=== PATIENT | female | born 1970 | race Caucasian/White ===

== ENCOUNTER 2023-05-15 19:25 | Emergency (ER) | payer OTHER, SELFPAY ==
[2023-05-15 19:28] VITALS: BP 153/87; PULSE 94; RESP 20; TEMP 36.3; O2SAT 98; BMI 36.3
--- NOTE | 2023-05-15 19:52 | US_ITS ---
INDICATION: RUQ PAIN EXAMINATION: Ultrasound US Abdomen RUQ (limited) TECHNIQUE: Crespo scale and color doppler imaging was performed of the right upper quadrant. COMPARISON: None. FINDINGS: LIVER: Hyperechoic parenchyma. No focal hepatic lesion. There is no free fluid. GALLBLADDER AND BILIARY TREE: No shadowing gallstone, pericholecystic fluid or gallbladder wall thickening is demonstrated. The proximal common bile duct measures 4 mm in caliber, which is within normal limits for the patient''s age. Sonographic Rojo''s sign: Negative. PANCREAS: No focal abnormality is demonstrated in the pancreas. No pancreatic ductal dilatation. US/Gallbladder IMPRESSION: Hyperechoic liver compatible with hepatocellular disease such as steatosis. No acute sonographic abnormality is demonstrated in the right upper quadrant. Electronically Signed: Ayden Ambrosio MD at 20:35 EDT ,
[2023-05-15] MEDS: Morphine 4 MG/ML Syringe IV (20:00)
[2023-05-15] MEDS: Ondansetron 4 MG/2 ML Vial IV (20:00)
[2023-05-15 20:07] LABS: Absolute Lymphocyte Count 1.73 X10^3/uL (0.83-4.51); Absolute Neutrophil Count 9.1 X10^3/uL (2.0-7.7); Basophil# 0.03 X10^3/uL; Basophil% 0.3 % (0-1); Eosinophil# 0.05 X10^3/uL; Eosinophils% 0.4 % (0-5); Hematocrit 42.2 % (37-47); Hemoglobin 13.9 g/dL (12.0-15.0); Lymphocyte # 1.73 X10^3/ul (0.83-4.51); Lymphocyte % 14.9 % (19-41); Mean Corp Hgb Conc 32.9 g/dL (32-36); Mean Corpuscular Hgb 28.8 pg (27.0-32.0); Mean Corpuscular Volume 87.6 fL (81-99); Mean Platelet Vol. 9.6 fl (6.2-12.0); Monocyte# 0.66 X10^3/uL; Monocyte% 5.7 % (0-10); NRBC Flagged by Analyzer 0 % (0-5); Neutrophil # 9.13 X10^3/uL (2.7-7.7); Neutrophil % 78.4 % (47-70); Platelet Count 307 K/mm3 (150-450); RBC Distribution Width SD 41.7 fl (35.1-43.9); Red Blood Count 4.82 M/mm3 (4.2-5.4); White Blood Count 11.6 K/mm3 (4.4-11.0)
[2023-05-15 20:22] LABS: AST(SGOT) 16 U/L (15-37); Alanine Aminotransfer ALT/SGPT 34 U/L (13-56); Albumin, Serum 3.9 g/dL (3.2-5.0); Alkaline Phosphatase 84 U/L (45-117); Bilirubin, Direct 0.11 mg/dL (0.00-0.30); Globulin 3.8 g/dL (2.2-4.2); Lipase 21 U/L (13-75); Protein, Total 7.7 g/dL (6.4-8.2)
--- NOTE | 2023-05-15 20:27 | ED.VIS.GI ---
HPI HPI - GI History of Present Illness Chief Complaint: Abd Pain Detail of Chief Complaint: Right upper quadrant abdominal pain with nausea and vomiting Informant: patient and spouse/S.O. Abdominal Pain/Flank Pain Onset: Today Context: Sudden Onset Timing: Continuous and Waxes and wanes Quality: Cramping Location: RUQ Current Severity: Moderate Maximum Severity: Severe Worsened by: Food (After having chocolate milk and chocolate chip cookies for breakfast and coleslaw for lunch) Nausea/Vomiting/Emesis GI Symptom: Positive for Nausea and Vomiting Onset: Today Quality: Negative for Nonbilious, Blood streaks, Coffee ground or Hematemesis Diarrhea/Melena/Hematochezia GI Symptom: Negative for Diarrhea, Melena or Hematochezia Associated Symptoms Associated Symptoms: Negative for Dysuria, Frequency, Hematuria or Urgency Narrative Narrative: Patient is a 52-year-old woman who endorses intolerance to greasy and fried foods. Pain started this morning after having chocolate milk and chocolate chip cookies for breakfast. Onset was 2 to 3 hours after she ate. Pain got worse after she had coleslaw for lunch at 1130. She has had nausea and vomiting. She denies black or maroon-colored stool. She denies coffee-ground emesis. She denies radiation of the pain to her back. Family history cholelithiasis. She denies headache, visual, ocular auditory symptoms. Denies cardiac respiratory symptoms. She denies leg pain, swelling discoloration. She denies sick symptoms. There is no history of trauma. Prior similar symptoms: No Recent Illness/Hospitalization: No PFSH PFSH Medical History Cyst of abdomen Torn meniscus Home Medications montelukast 10 mg tablet 10 mg PO DAILY 05/15/23 [History Last Taken Unknown] venlafaxine 75 mg capsule,extended release 24 hr 75 mg PO BID 05/15/23 [History Last Taken Unknown] Allergy/AdvReac Type Severity Reaction Status Date / Time Penicillins Allergy PT UNSURE Verified 05/15/23 19:28 OF REACTION Surgical History Previous section Social History (Updated 05/15/23 @ 20:[address] Naseem Watters MD) household members: spouse Smoking Status: Never smoker substance use type: does not use ROS ROS ED Constitutional Constitutional ED: Denies chills, fever(s), subjective, sweats or weight loss ENT ENT ED: Denies ear pain, rhinorrhea or sore throat Cardiovascular Cardiovascular: Denies chest pain, orthopnea, palpitations, paroxysmal nocturnal dyspnea or racing heartbeat Respiratory/Chest Respiratory/Chest: Denies cough, dyspnea, dyspnea on exertion, orthopnea or paroxysmal nocturnal dyspnea Gastrointestinal Gastrointestinal: Reports abdominal pain, nausea and vomiting; Denies constipation, diarrhea or melena Genitourinary Genitourinary ED: Denies dysuria, hematuria or urinary frequency Musculoskeletal Musculoskeletal: Denies arthralgias, back pain, myalgias or neck pain Integumentary Denies Abrasions or rash Neurologic Neurologic: Denies headache(s), paresthesias or weakness Psychiatric Psychiatric: Denies anxiety Hematologic/Lymphatic Hematologic/Lymphatic: Denies easy bleeding or easy bruising EXAM Physical Exam Const Vital Signs: 05/15/23 19:28 Temperature 97.3 F L Temperature Source Temporal Pulse Rate 94 Respiratory Rate 20 H Blood Pressure 153/87 H Blood Pressure Mean 109 Pulse Ox 98 Oxygen Delivery Method Room Air Positive well nourished, well developed and obese General Appearance ED: well developed; Negative for NAD or pallor Nutritional Appearance: obese HEENT Reports TM's clear and dry mucous membranes normocephalic and atraumatic Tympanic Membrane ED: Yes TM's clear Mouth ED: Yes dry mucous membranes Mouth: dry mucous membranes Eyes PERRL and EOMs intact bilaterally General Eye ED: Negative for pale conjunctiva or scleral icterus Neck no lymphadenopathy, supple and no JVD Resp normal respiratory effort and clear to auscultation bilaterally Cardio regular rate, regular rhythm and S1 normal heart sound GI non-distended and no masses; Negative for non-tender GI Narrative: Patient has a clinical Rojo sign. Auscultation: hypoactive bowel sounds Palpation: soft, tender RUQ and guarding RUQ; Negative for rigid, hepatomegaly, splenomegaly, hernia, mass, pulsatile mass or rebound tenderness present Back/Spine no CVA tenderness Cervical Spine: cervical spine tenderness Thoracic Spine / Upper Back: thoracic spinal tenderness Lumbar Spine / Lower Back: lumbar spinal tenderness Extremity full ROM General Extremety ED: Negative for edema or tenderness General Extremity: Negative for edema Neuro CN's II-XII intact bilaterally, moves all extremities and no sensory deficits noted Sensorium / Orientation: alert Psych mental status grossly normal and thought process normal Skin no wounds General Skin Exam: Negative for jaundice or pallor Lesions: no lesions Rashes: no rashes MDM MDM MDM Narrative Medical decision making narrative: Intolerance to greasy and fried foods right upper quadrant pain family history cholelithiasis concerns the patient may have cholelithiasis with colic, cholecystitis, there is no clinical findings suggest a sending cholangitis. May represent atypical presentation for lower lobe pneumonia. May also represent atypical presentation for renal colic however she has no back pain. Work-up included CBC, liver profile, lipase and electrolytes. Ultrasound of the gallbladder was ordered. Patient was medicated with Zofran for nausea and vomiting morphine for her pain. History & Record Review Additional record(s) reviewed:: Prior ED visit and Prior labs Lab Data Attestation: I reviewed the patient's lab results. Lab results narrative: White count is slightly elevated with shift. There is no bandemia. Transaminases and bilirubin are normal. Lipase is normal. Patient states she feels markedly better after pain medicine. Her nausea resolved. She was informed of her ultrasound results. Labs: Laboratory Results - last 24 hr 05/15/23 19:50 WBC 11.6 H RBC 4.82 Hgb 13.9 Hct 42.2 MCV 87.6 MCH 28.8 MCHC 32.9 RDW Std Deviation 41.7 RDW Coeff of Romana 13.0 Plt Count 307 MPV 9.6 Immature Gran % (Auto) 0.300 Neut % (Auto) 78.4 H Lymph % (Auto) 14.9 L [place] % (Auto) 5.7 Eos % (Auto) 0.4 Baso % (Auto) 0.3 Absolute Neuts (auto) 9.1 H Absolute Lymphs (auto) 1.73 Nucleated RBC % 0 Total Bilirubin 0.40 Direct Bilirubin 0.11 AST 16 ALT 34 Alkaline Phosphatase 84 Total Protein 7.7 Albumin 3.9 Globulin 3.8 Lipase 21 Radiography Diagnostic Testing: Clinical Impression(s) from Imaging Studies Gallbladder Ultrasound 05/15/23 19:52 IMPRESSION: Hyperechoic liver compatible with hepatocellular disease such as steatosis. No acute sonographic abnormality is demonstrated in the right upper quadrant. Electronically Signed: Ayden Ambrosio MD at 20:35 EDT , Discharge Plan Triage Chief Complaint: Abd Pain ED Provider: Naseem Watters Dx/Rx/DC Orders Clinical Impression: Right upper quadrant abdominal pain, Hepatic steatosis Instructions: Nonalcoholic Fatty Liver ... Prescriptions: No Action montelukast 10 mg tablet 10 mg PO DAILY Patient Comments: TAKE 1 TABLET BY MOUTH ONCE DAILY venlafaxine 75 mg capsule,extended release 24hr 75 mg PO BID Patient Comments: TAKE 2 CAPSULES BY MOUTH IN THE MORNING AND 1 IN THE EVENING Primary Care Provider: Raúl Lopez Referrals: Raúl Lopez DO [Primary Care Provider] - 1-2 Weeks Disposition Disposition: Home, Self Care
[2023-05-15 22:46] VITALS: BP 139/78; PULSE 96; RESP 18
== END 2023-05-15 22:48 | disposition home or self-care (01) ==
PROVIDERS: Emergency Provider Emergency Medicine; PCP Family Medicine; Visit Provider Emergency Medicine
DX: R10.11 Right upper quadrant pain (principal); K76.0 Fatty (change of) liver, not elsewhere classified; E66.9 Obesity, unspecified; Z79.899 Other long term (current) drug therapy
CPT/HCPCS: 76705; 80076; 83690; 85025; 96374; 96375; 99283; A4216; J2405